=== PATIENT | female | born 1985 ===

== ENCOUNTER 2023-02-16 08:40 | Emergency (ER) | payer MEDICAID ==
[2023-02-16] MEDS ORDERED: Albuterol/Ipratropium 3.0-0.5 MG/3 ML Neb Soln ONE (08:46)
[2023-02-16] MEDS ORDERED: Albuterol/Ipratropium 3.0-0.5 MG/3 ML Neb Soln NEB ONE (08:46)
[2023-02-16] MEDS ORDERED: Sodium Chloride 0.9% 10 ML Syringe FLUSH PRN (08:47)
[2023-02-16] MEDS ORDERED: methylPREDNISolone Sodium Succinate 125 MG/2 ML SDV IVPUSH STA (08:51)
[2023-02-16 09:08] LABS: BASOPHILS ABSOLUTE AUTO 0.07 10^3/uL (0.00-0.50); BASOPHILS PERCENT AUTO 0.5 % (0-1); EOSINOPHILS ABSOLUTE AUTO 0.24 10^3/uL (0.00-1.50); EOSINOPHILS PERCENT AUTO 1.8 % (0-6); HEMATOCRIT 46.1 % (37.0-47.0); HEMOGLOBIN 15.4 g/dL (12.0-16.0); IMMATURE GRAN ABSOLUTE AUTO 0.01 10^3/uL (0.00-0.49); IMMATURE GRAN PERCENT AUTO 0.1 % (0.0-4.9); LYMPHOCYTES ABSOLUTE AUTO 3.11 10^3/uL (0.60-5.00); MEAN CORPUSCULAR HEMOGLOBIN 32.5 pg (27.0-32.0); MEAN CORPUSCULAR HGB CONC 33.4 g/dL (32.0-36.0); MEAN CORPUSCULAR VOLUME 97.3 fL (83.0-97.0); MONOCYTES ABSOLUTE AUTO 0.71 10^3/uL (0.00-1.50); MONOCYTES PERCENT AUTO 5.5 % (0-10); NEUTROPHILS ABSOLUTE AUTO 8.84 x10^3/uL (1.80-8.00); NEUTROPHILS PERCENT AUTO 68.1 % (41-71); PLATELET COUNT,PLT 254 10^3/uL (150-400); RED BLOOD CELL COUNT 4.74 x10^6/uL (4.00-5.50)
[2023-02-16] MEDS ORDERED: LORazepam 2 MG/ML SDV IVPUSH ONE (09:08)
[2023-02-16 09:21] LABS: ALANINE AMINOTRANSFERASE,ALT 48 U/L (12-78); ALBUMIN 3.4 g/dL (3.4-5.0); ALKALINE PHOSPHATASE 98 U/L (46-116); ASPARTATE AMNIOTRANSFERASE,AST 25 U/L (15-37); BILIRUBIN TOTAL 1.2 mg/dL (0.0-1.0); BLOOD UREA NITROGEN,BUN 9 mg/dL (7-18); C-REACTIVE PROTEIN 0.51 mg/dL (<=0.50); CARBON DIOXIDE,CO2 21 mmol/L (21-32); CHLORIDE,CL 104 mEq/L (98-106); ESTIMATED GFR 74 mL/min (>=60); GLUCOSE RANDOM 118 mg/dL (75-99); POTASSIUM,K 3.7 mEq/L (3.5-5.0); PROTEIN TOTAL,TP 7.5 g/dL (6.4-8.2); SODIUM,NA 139 mEq/L (136-145)
[2023-02-16 09:43] LABS: CORONAVIRUS COVID-19 NAA NEGATIVE (NEGATIVE); INFLUENZA A NAA NEGATIVE (NEGATIVE); INFLUENZA B NAA NEGATIVE (NEGATIVE); RESPIRATORY SYNCYTIAL VIR NAA NEGATIVE (NEGATIVE)
== END 2023-02-16 11:44 | disposition home or self-care (01) ==
LOC: EDSEX → CC.ED 08:40
DX: J45.901 Unspecified asthma with (acute) exacerbation (principal); Z20.822 Contact with and (suspected) exposure to COVID-19
CPT/HCPCS: 0241U; 36415; 71045; 80053; 85025; 86140; 94640; 96374; 96375; 99284; 99285-25; J2060; J2930; J7620-GY

== ENCOUNTER 2024-06-29 09:58 | Emergency (ER) | payer MEDICAID, OTHER ==
[2024-06-29] MEDS: Albuterol/Ipratropium 3.0-0.5 MG/3 ML Neb Soln NEB ONE (10:05)
[2024-06-29] MEDS: methylPREDNISolone Sodium Succinate 125 MG/2 ML SDV IVPUSH STA (10:25)
[2024-06-29] MEDS: Albuterol/Ipratropium 3.0-0.5 MG/3 ML Neb Soln ONE (10:26)
[2024-06-29 10:33] LABS: BASOPHILS ABSOLUTE AUTO 0.07 10^3/uL (0.00-0.50); BASOPHILS PERCENT AUTO 0.7 % (0-1); EOSINOPHILS ABSOLUTE AUTO 0.48 10^3/uL (0.00-1.50); EOSINOPHILS PERCENT AUTO 4.8 % (0-6); HEMATOCRIT 42.9 % (37.0-47.0); HEMOGLOBIN 14.3 g/dL (12.0-16.0); IMMATURE GRAN ABSOLUTE AUTO 0.01 10^3/uL (0.00-0.49); IMMATURE GRAN PERCENT AUTO 0.1 % (0.0-4.9); LYMPHOCYTES ABSOLUTE AUTO 4.44 10^3/uL (0.60-5.00); LYMPHOCYTES PERCENT AUTO 44.3 % (24-44); MEAN CORPUSCULAR HEMOGLOBIN 32.2 pg (27.0-32.0); MEAN CORPUSCULAR HGB CONC 33.3 g/dL (32.0-36.0); MEAN CORPUSCULAR VOLUME 96.6 fL (83.0-97.0); MONOCYTES ABSOLUTE AUTO 0.79 10^3/uL (0.00-1.50); MONOCYTES PERCENT AUTO 7.9 % (0-10); NEUTROPHILS ABSOLUTE AUTO 4.24 x10^3/uL (1.80-8.00); NEUTROPHILS PERCENT AUTO 42.2 % (41-71); PLATELET COUNT,PLT 223 10^3/uL (150-400); RED BLOOD CELL COUNT 4.44 x10^6/uL (4.00-5.50)
[2024-06-29 10:49] LABS: ALBUMIN 3.1 g/dL (3.4-5.0); BILIRUBIN TOTAL 0.6 mg/dL (0.0-1.0); C-REACTIVE PROTEIN 0.96 mg/dL (<=0.50); CALCIUM 8.7 mg/dL (8.4-10.1); CREATININE 0.8 mg/dL (0.6-1.0); EST CRCL DRUG DOSING (CG) 75.41 mL/min; PROTEIN TOTAL,TP 7.3 g/dL (6.4-8.2)
[2024-06-29 10:50] LABS: POTASSIUM,K 2.9 mEq/L (3.5-5.0)
[2024-06-29] MEDS: Potassium Chloride 20 MEQ Tab.ER PO ONE (11:05)
[2024-06-29 11:09] LABS: CORONAVIRUS COVID-19 NAA NEGATIVE (NEGATIVE); INFLUENZA A NAA NEGATIVE (NEGATIVE); INFLUENZA B NAA NEGATIVE (NEGATIVE); RESPIRATORY SYNCYTIAL VIR NAA NEGATIVE (NEGATIVE)
== END 2024-06-29 11:40 | disposition home or self-care (01) ==
LOC: CC.ED 09:58
DX: J45.901 Unspecified asthma with (acute) exacerbation (principal); E87.6 Hypokalemia; Z90.49 Acquired absence of other specified parts of digestive tract; Z79.51 Long term (current) use of inhaled steroids; Z79.899 Other long term (current) drug therapy
CPT/HCPCS: 0241U; 36415; 71046; 80053; 83735; 84484; 85025; 85379; 86140; 87651; 93005; 93010; 94640; 96374; 99284; 99285-25; A9270-GY; J2919

== ENCOUNTER 2024-12-05 15:30 | Emergency (ER) | payer OTHER ==
[2024-12-05] MEDS: Distilled Water Ophth Irrig Soln 120 ML Bottle EYEBOTH ONE (15:45)
[2024-12-05] MEDS: Distilled Water Ophth Irrig Soln 120 ML Bottle ONE (16:08)
[2024-12-05] MEDS: Fluorescein 1 MG Ophth Strip EYEBOTH ONE (16:09)
[2024-12-05] MEDS: Tetracaine HCl/PF 0.5% 4 ML Bottle EYEBOTH ONE (16:34)
[2024-12-05] MEDS: Erythromycin Base 0.5% Ophth Oint 3.5 GM Tube EYEBOTH ONE (16:34)
== END 2024-12-05 16:15 | disposition home or self-care (01) ==
LOC: CC.ED 15:30
DX: S05.02XA Injury of conjunctiva and corneal abrasion without foreign body, left eye, initial encounter (principal); J45.909 Unspecified asthma, uncomplicated; Z79.84 Long term (current) use of oral hypoglycemic drugs; Z79.899 Other long term (current) drug therapy; Z90.49 Acquired absence of other specified parts of digestive tract; X58.XXXA Exposure to other specified factors, initial encounter
CPT/HCPCS: 99283; J3490